=== PATIENT | female | born 1975 | race African-American/Black ===

== ENCOUNTER 2019-06-07 14:02 | Emergency (ER) | payer OTHER ==
[~2019-06-07] VITALS: Ht 152.4 cm; Wt 61.7 kg
[2019-06-07 14:11] VITALS: Ht 152.4 cm; Wt 61.7 kg
[2019-06-07 15:58] VITALS: BP 127/63
== END 2019-06-07 15:58 | disposition home or self-care (01) ==
LOC: ED 14:02
DX: T19.2XXA Foreign body in vulva and vagina, initial encounter (principal); Z88.2 Allergy status to sulfonamides; Z98.890 Other specified postprocedural states; W45.8XXA Other foreign body or object entering through skin, initial encounter; Y93.89 Activity, other specified; Y92.89 Other specified places as the place of occurrence of the external cause; Y99.8 Other external cause status